=== PATIENT | male | born 1945 | race Caucasian/White ===

== ENCOUNTER 2016-10-24 06:46 | Day surgery (SDC) | payer OTHER ==
[~2016-10-24] VITALS: Ht 188 cm; Wt 86.2 kg
[~2016-10-24 06:46] MED LIST: ASPIR-LOW81 MG PO; ATORVASTATIN CA20 MG PO; CALCITRIOL0.25 MCG PO; CARVEDILOL25 MG PO; CYANOCOBALAM1000 MCG PO; FUROSEMIDE40 MG PO; LISINOPRIL40 MG PO; METAMUCIL FIBE3.4 GM PO; MIRALAX17 GM PO; SPIRONOLACTONE25 MG PO; VITAMIN D2000 UNIT PO
== END 2016-10-24 12:50 | disposition home or self-care (01) ==
LOC: CATH 06:46
DX: Z45.010 Encounter for checking and testing of cardiac pacemaker pulse generator [battery] (principal); I48.91 Unspecified atrial fibrillation; I10 Essential (primary) hypertension; C85.90 Non-Hodgkin lymphoma, unspecified, unspecified site; I50.9 Heart failure, unspecified
CPT/HCPCS: 93005; C1882; J0690; J2250; J3010; S0020